=== PATIENT | female | born 1955 | race Caucasian/White ===

== ENCOUNTER → 2017-01-29 | Outpatient (CLI) | payer OTHER | LOC: FIMAGING 07:31 | DX: Z12.31 Encounter for screening mammogram for malignant neoplasm of breast (principal); Z80.3 Family history of malignant neoplasm of breast | CPT/HCPCS: G0202 ==

== ENCOUNTER → 2017-02-15 | Outpatient (CLI) | payer OTHER | LOC: FIMAGING 15:04 | PROVIDERS: ATTEND Obstetrics & Gynecology Gynecology | DX: Z12.39 Encounter for other screening for malignant neoplasm of breast (principal) ==

== ENCOUNTER → 2018-02-20 | Outpatient (CLI) | payer OTHER | LOC: FIMAGING 15:08 | PROVIDERS: ATTEND Obstetrics & Gynecology | DX: Z12.31 Encounter for screening mammogram for malignant neoplasm of breast (principal); Z80.3 Family history of malignant neoplasm of breast ==

== ENCOUNTER → 2019-03-03 | Outpatient (CLI) | payer OTHER | LOC: FIMAGING 07:20 | PROVIDERS: ATTEND Obstetrics & Gynecology | DX: Z12.31 Encounter for screening mammogram for malignant neoplasm of breast (principal); Z80.3 Family history of malignant neoplasm of breast ==